=== PATIENT | female | born 1985 | race African-American/Black ===

== ENCOUNTER 2024-03-05 13:32 | Emergency (ER) | payer BC, OTHER ==
--- NOTE | 2024-03-05 14:08 | RAD REPORT ---
EXAMINATION: CT HEAD WITHOUT CONTRAST CLINICAL INDICATION: Female, 38 years old.headache, HTN TECHNIQUE: Axial CT images from the skull base to the vertex without intravenous contrast. Coronal an d sagittal reformatted images were created from the data set. One or more of the following dose reduction techniques were used: Automated exposure control, adjustment of the mA and/or kV according to patient size, and/or iterative reconstruction. Unless otherwise specified, incidental findings do not require dedicated imaging follow-up. [id number]. COMPARISON: No prior exam. FINDINGS: INTRACRANIAL: Intraparenchymal cystic mass in the left posterior frontal and temporal lobe in the reg ion of the insula/sylvian fissure. This measures 3.4 x 3.2 x 5.2 cm. Slight left to right midline shift with some mass effect in left lateral ventricle. There is some surrounding white matter hypoatt enuation that may represent some mild vasogenic edema. No hydrocephalus. No acute intracranial hemorrhage. VASCULATURE: No visualized abnormalities in the arteries or dural venous sinuses. SCALP/SKULL: No significant soft tissue or osseous abnormalities. SINUSES: Complete occlusion of the left maxillary sinus which may be secondary to mucosal thickening versus a polyp. IMPRESSION: Cystic mass measuring over 5 cm suspicious for neoplasm in the left frontotemporal region. Mild left to right midline shift. No hydrocephalus or acute intracranial hemorrhage. Recommend neurosurgical consultation. THIS REPORT CONTAINS FINDINGS THAT MAY BE CRITICAL TO PATIENT CARE. The emergent findings were commun icated to Dr. Dobson on 03/05/2024 2:03 PM at time of dictation. .
[2024-03-05] MEDS ORDERED: dexAMETHasone 10 MG/ML VIAL ONE (14:16)
[2024-03-05] MEDS ORDERED: MORPHINE 4 MG/ML SYR ONE (14:16)
[2024-03-05] MEDS ORDERED: ONDANSETRON 4 MG/2 ML VIAL ONE (14:16)
[2024-03-05 14:32] LABS: Absolute Eosinophils 0.1 K/uL (0-0.5); Absolute Lymphocytes (CBC) 1.7 K/uL (0.7-4.9); Absolute Monocytes 0.5 K/uL (0.1-1.3); Absolute Neutrophil 2.7 K/uL (1.8-8.0); Basophils % 0.8 % (0-1.3); Eosinophils % 2.8 % (0-4.4); Hematocrit 34.3 % (36.0-45.0); Lymphocytes % 32.9 % (15.3-44.8); MCH 26.5 pg (27.0-35.0); MCHC 32.1 g/dL (32.0-36.0); MCV 82.4 fL (80-100); MPV 10.3 fL (7.6-11.3); Monocytes % 10.1 % (3.3-12.3); Neutrophils % 53.4 % (41.7-73.7); Platelets 204 thou/uL (152-406); RBC Red Blood Cell Count 4.16 M/uL (3.86-4.86); Red Cell Distribution Width 14.5 % (12.1-15.2)
--- NOTE | 2024-03-05 14:35 | ER ---
Nurse's Notes [facility] Name: Asmita Edmonds Age: 38 yrs Sex: Female : 1985 Arrival Date: 03/05/2024 Time: 13:32 Bed 6 Private MD: Diagnosis: Headache;Brain mass;Malignant Hypertension Presentation: 03/05 13:34 Chief complaint: Patient states: Headache, n/v started yesterday but then again at 1230 iw today. Coronavirus screen: At this time, the client does not indicate any symptoms associated with coronavirus-19. Ebola Screen: No symptoms or risks identified at this time. Initial Sepsis Screen: Does the patient meet any 2 criteria? No. Patient's initial sepsis screen is negative. Does the patient have a suspected source of infection? No. Patient's initial sepsis screen is negative. Risk Assessment: Do you want to hurt yourself or someone else? Patient reports no desire to harm self or others. Onset of symptoms was March 04, 2024. 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 - Infectious Disease History:: Denies. - Social history:: Smoking status: Patient denies any tobacco usage or history of. - Family history:: not pertinent. - Hospitalizations: : No recent hospitalization is reported. Screenin:24 Abuse screen: Denies threats or abuse. Denies injuries from another. Nutritional iw screening: No deficits noted. Tuberculosis screening: No symptoms or risk factors identified. Assessment: 13:34 General: Appears in no apparent distress. Behavior is calm, cooperative. Pain: iw Complains of pain in forehead Pain currently is 9 out of 10 on a pain scale. Neuro: Level of Consciousness is awake, alert, obeys commands, Oriented to person, place, time, situation, [place] are equal bilaterally Moves all extremities. Full function Speech is normal. Cardiovascular: Patient's skin is warm and dry. Respiratory: Respiratory effort is even, unlabored, Respiratory pattern is regular, symmetrical. Derm: Skin is intact, is healthy with good turgor. Musculoskeletal: Range of motion: intact in all extremities. 13:44 Reassessment: Pt to CT . ss 14:42 Reassessment: Patient appears in no apparent distress at this time. Patient and/or iw family updated on plan of care and expected duration. Pain level reassessed. Patient is alert, oriented x 3, equal unlabored respirations, skin warm/dry/pink. 15:34 Reassessment: Dr. Dobson at bedside to update family on transfer. iw 16:54 Reassessment: Patient appears in no apparent distress at this time. Patient and/or iw family updated on plan of care and expected duration. Pain level reassessed. Patient is alert, oriented x 3, equal unlabored respirations, skin warm/dry/pink. Vital Signs: 13:38 BP 164 / 103; Pulse 72; Resp 18; Temp 97.9; Pulse Ox 100% on R/A; Weight 122.47 kg; iw Height 5 ft. 7 in. ; Pain 9/10; 14:05 BP 146 / 111; Pulse 71; Resp 19; Pulse Ox 100% on R/A; iw 14:31 BP 160 / 108; iw 14:39 BP 152 / 95; Pulse 72; Resp 16; Pulse Ox 100% on R/A; iw 15:46 BP 172 / 65; Pulse 72; Resp 16; Pulse Ox 100% on R/A; iw 13:38 Body Mass Index 42.29 (122.47 kg, 170.18 cm) iw 13:38 Pain Scale: Adult iw Gopi Coma Score: 14:29 Eye Response: spontaneous(4). Motor Response: obeys commands(6). Verbal Response: rn oriented(5). Total: 15. ED Course: 13:33 Patient arrived in ED. iw 13:36 Rodrigo Dobson MD is Attending Physician. rn 13:38 Domenica Elena, HERVE is Primary Nurse. iw 13:38 Triage completed. iw 13:39 Arm band placed on. iw 13:44 EKG done, by ED staff, reviewed by Rodrigo Dobson MD. ss 13:48 CT Head Brain wo Cont In Process Unspecified. EDMS 14:05 initiated a transfer with [facility] from the [facility]. eb 14:12 Initial lab(s) drawn, by me, sent to lab. Inserted saline lock: 22 gauge in right iw antecubital area, using aseptic technique. Blood collected. Flushed with 10 mL NS. 14:43 XRAY Chest (1 view) In Process Unspecified. EDMS 15:[address] Funez the neuro electronics system mechanic for [facility] with Dr. Dobson for patient transfer eb consultation. 15:37 connected the hospitalist of call for [facility] with Dr. Dobson for patient eb transfer consultation. 16:09 administrative approval given by Maya Marcial / patient has been accepted to [facility] 22 tower room 2242/ Dr. James aVldes has accepted the patient in transfer / report to be called to [phone]. Administered Medications: 14:23 Drug: Decadron - Dexamethasone IVP 10 mg IVP once Route: IVP; Site: right antecubital; iw 14:23 Drug: morphine IVP or IV 4 mg IVP once over 4 mins Route: IVP; Infused Over: 4 mins; iw Site: right antecubital; 14:23 Drug: Ondansetron IVP 4 mg IVP once; over 2 minutes Route: IVP; Site: right antecubital;iw 16:33 Drug: cloNIDine PO 0.1 mg PO once Route: PO; iw Outcome: 14:34 ER care complete, transfer ordered by . rn 17:37 Patient left the ED. iw Signatures: Dispatcher [employer] Domenica Blount, RN HERVE Rodrigo Dobson MD MD rn Blanchard, Shelby, RN RN ss Botello, Maya muller
--- NOTE | 2024-03-05 14:35 | EDPHYS ---
Physician Documentation [facility] Name: Asmita Edmonds Age: 38 yrs Sex: Female : 1985 Arrival Date: 03/05/2024 Time: 13:32 Bed 6 Private MD: ED Physician Rodrigo Dobson HPI: 03/05 14:26 This 38 yrs old Black Female presents to ER via EMS with complaints of Headache, High rn Blood Pressure. 14:26 The patient complains of pain to the top of head and forehead. The patient describes rn the headache as aching. Onset: The symptoms/episode began/occurred 2 month(s) ago. Associated signs and symptoms: Pertinent positives: nausea, blurred vision, Pertinent negatives: fever, neck stiffness, rash. Severity of symptoms: At its worst the pain was moderate, in the emergency department the pain is unchanged. The patient has experienced similar episodes in the past. Patient reports has been having headache associated with foggy thoughts and blurred vision for months. Worse over the last 2 days. Blood pressure was really high and has been off her blood pressure medicine for return. No family history of brain mass or tumor. No family history of aneurysm. No focal neurological deficit.. 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 - Infectious Disease History:: Denies. - Social history:: Smoking status: Patient denies any tobacco usage or history of. - Family history:: not pertinent. - Hospitalizations: : No recent hospitalization is reported. ROS: 14:26 Constitutional: Negative for fever, chills, and weight loss, Neck: Negative for injury, rn pain, and swelling, Cardiovascular: Negative for chest pain, palpitations, and edema, Respiratory: Negative for shortness of breath, cough, wheezing, and pleuritic chest pain, Abdomen/GI: Positive for nausea MS/Extremity: Negative for injury and deformity, Skin: Negative for injury, rash, and discoloration, Neuro: Negative for weakness, numbness, tingling, and seizure, Exam: 14:26 Constitutional: This is a well developed, well nourished patient who is awake, alert, rn and in no acute distress. Eyes: Pupils equal round and reactive to light, extra-ocular motions intact. Neck: No meningismus Cardiovascular: Regular rate and rhythm. No pulse deficits. Respiratory: No increased work of breathing, no retractions or nasal flaring. Abdomen/GI: Soft, non-tender MS/ Extremity: Pulses equal, no cyanosis. Neurovascular intact. Full, normal range of motion. Equal circumference. Neuro: Awake and alert, GCS 15, oriented to person, place, time, and situation. Cranial nerves II-XII grossly intact. Motor strength 5/5 in all extremities. Sensory grossly intact. 17:00 ECG was reviewed by the Attending Physician. rn Vital Signs: 13:38 BP 164 / 103; Pulse 72; Resp 18; Temp 97.9; Pulse Ox 100% on R/A; Weight 122.47 kg; iw Height 5 ft. 7 in. ; Pain 9/10; 14:05 BP 146 / 111; Pulse 71; Resp 19; Pulse Ox 100% on R/A; iw 14:31 BP 160 / 108; iw 14:39 BP 152 / 95; Pulse 72; Resp 16; Pulse Ox 100% on R/A; iw 15:46 BP 172 / 65; Pulse 72; Resp 16; Pulse Ox 100% on R/A; iw 13:38 Body Mass Index 42.29 (122.47 kg, 170.18 cm) iw 13:38 Pain Scale: Adult iw Ewing Coma Score: 14:29 Eye Response: spontaneous(4). Motor Response: obeys commands(6). Verbal Response: rn oriented(5). Total: 15. MDM: 13:36 Medical Screening Exam initiated rn 14:29 Differential diagnosis: cluster headache, hypertensive headache, intracerebral rn hemorrhage, migraine, neoplasm, subarachnoid bleed, tension headache, vasomotor headache. Data reviewed: vital signs, nurses notes, lab test result(s), radiologic studies, and as a result, I will admit patient. Consideration of Admission/Observation Patient was admitted/placed on observation. Escalation of care including admission/observation considered. Counseling: I had a detailed discussion with the patient and/or guardian regarding the historical points, exam findings, and any diagnostic results supporting the discharge/admit diagnosis, lab results, radiology results, the need to transfer to another facility, for higher level of care, [facility] does not immediately have the required specialist. Response to treatment: the patient's symptoms have mildly improved after treatment, and as a result, I will admit patient. ED course: CT shows left cerebral mass with mild shift. Organize transfer to [facility] in [place] for neurological care. Decadron given here for swelling. Updated family and patient.. 14:32 ED course: I personally spent 35 minutes engaged in work directly related to the rn individual patient's care. This does not include any time spent performing procedures. The patient has been deemed critically ill because due to extremely elevated blood pressure with underlying and new diagnosis of brain mass with swelling requiring IV steroids and organization of transfer. 03/05 13:38 Order name: Basic Metabolic Panel; Complete Time: 15: rn 03/05 13:38 Order name: CBC with Diff; Complete Time: 14:34 rn 03/05 13:38 Order name: LFT's; Complete Time: 15:03/05 13:38 Order name: NT PRO-BNP; Complete Time: 15:03/05 13:38 Order name: PT-INR; Complete Time: 15:03/05 13:38 Order name: Troponin HS; Complete Time: 15: rn 03/05 13:38 Order name: XRAY Chest (1 view); Complete Time: 15:07 rn 03/05 13:38 Order name: CT Head Brain wo Cont; Complete Time: 14:34 rn 03/05 13:38 Order name: EKG; Complete Time: 13:38 rn 03/05 13:38 Order name: Cardiac monitoring; Complete Time: 13:44 03/05 13:38 Order name: EKG - Nurse/Tech; Complete Time: 13:44 rn 03/05 13:38 Order name: IV Saline Lock; Complete Time: 14:03/05 13:38 Order name: Labs collected and sent; Complete Time: 14:03/05 13:38 Order name: O2 Per Protocol; Complete Time: 13:44 03/05 13:38 Order name: O2 Sat Monitoring; Complete Time: 13:44 rn EC:00 Rate is 71 beats/min. Rhythm is regular. QRS [place] is Normal. CA interval is normal. QRS rn interval is normal. QT interval is normal. No Q waves. T waves are Normal. No ST changes noted. Clinical impression: Normal ECG. Interpreted by me. Reviewed by me. Administered Medications: 14:23 Drug: Decadron - Dexamethasone IVP 10 mg IVP once Route: IVP; Site: right antecubital; iw 14:23 Drug: morphine IVP or IV 4 mg IVP once over 4 mins Route: IVP; Infused Over: 4 mins; iw Site: right antecubital; 14:23 Drug: Ondansetron IVP 4 mg IVP once; over 2 minutes Route: IVP; Site: right antecubital;iw 16:33 Drug: cloNIDine PO 0.1 mg PO once Route: PO; iw Disposition Summary: 03/05/24 14:34 Transfer Ordered Notes: Transfer Location: [facility] rn Reason: Higher level of care rn Condition: Stable rn Problem: an ongoing problem rn Symptoms: have improved rn Accepting Physician: (03/05/24 17:37) Diagnosis - Headache rn - Brain mass rn - Malignant Hypertension rn Forms: - Medication Reconciliation Form rn - 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 Total time: 35 rn minutes Signatures: Dispatcher [employer] Domenica Blount RN RN iw Nieto, Roman, MD MD fern cutter: (The following items were deleted from the chart) 17:37 14:34 Dr. nicholas richter
[2024-03-05 14:45] LABS: PT Prothrombin Time 12.6 SECONDS (9.4-12.5); Protime INR 1.2
[2024-03-05 14:55] LABS: ALT/SGPT 18 U/L (13-56); AST/SGOT 14 U/L (15-37); Albumin/Globulin Ratio 0.8 (1.1-1.8); Alkaline Phosphatase 62 U/L (45-117); Anion Gap 10.4 mEq/L (5.0-15.0); BUN Blood Urea Nitrogen 8 mg/dL (7-18); Bicarbonate 23 mEq/L (21-32); Bilirubin Direct < 0.2 mg/dL (0-0.2); Bilirubin Indirect, Calculated 0.2 mg/dL (0.2-0.8); Bilirubin Total 0.4 mg/dL (0.2-1.0); Globulin 3.8 g/dL (2.3-3.5); Glomerular Filtration Rate 98 ml/min (=/>90); Glucose Level 97 mg/dL (74-106); NT PRO-BNP 61 pg/mL (<125); Potassium 3.4 mEq/L (3.5-5.1); Protein, Total 6.8 g/dL (6.4-8.2); Sodium Level 137 mEq/L (136-145); Troponin High Sensitivity < 3.0 pg/mL (<58.9)
--- NOTE | 2024-03-05 15:03 | RAD REPORT ---
EXAM: Chest Single View HISTORY: HTN COMPARISON: None. FINDINGS: LUNGS/PLEURA: The lungs are clear. No pleural effusions or pneumothorax. No pulmonary edema. MEDIASTINUM: The mediastinal silhouette is within normal limits. CARDIAC: The cardiac silhouette is within normal limits. UPPER ABDOMEN: No significant abnormality. BONES: No acute abnormality. LINES/TUBES/OTHER: N/A IMPRESSION: No evidence of acute cardiopulmonary disease.
[2024-03-05] MEDS ORDERED: cloNIDine HCL 0.1 MG TAB ONE (16:28)
[2024-03-05 18:05] VITALS: TEMP 97.9; O2SAT 100
[2024-03-05 18:09] VITALS: BP 172/65
--- NOTE | 2024-03-11 13:13 | EKG ---
Test Date: 2024-03-05 Test Time: 13:41:47 Wool Cleaner: EUSEBIO MEASUREMENT RESULTS: Intervals: Rate: 71 MA: 160 QRSD: 94 QT: 440 QTc: 478 [place]: P: 75 MA: 160 QRS: 41 T: 42 INTERPRETIVE STATEMENTS: Normal sinus rhythm Normal ECG No previous ECG available for comparison Electronically Signed On 03-11-24 13:03:49 TRAFFIC SIGNAL MECHANIC by Teo Bush
== END 2024-03-05 17:37 | disposition short-term general hospital (02) ==
LOC: ER 13:32
DX: R51.9 Headache, unspecified (principal); G93.9 Disorder of brain, unspecified; I10 Essential (primary) hypertension
CPT/HCPCS: 85025; 80048; 36415; 85610; 80076; 84484; 83880; 70450; 71045; 96375; 96374; 99284; J1100; J2405; 93005